=== PATIENT | female | born 1985 | race Caucasian/White ===

== ENCOUNTER 2018-03-21 01:19 | Outpatient (CLI) | payer BC ==
[~2018-03-21 01:19] MED LIST: NO HOME MEDS
== END 2018-03-21 23:59 | disposition home or self-care (01) ==
LOC: DIABETIC 01:19
PROVIDERS: ATTEND Surgery
DX: Z01.818 Encounter for other preprocedural examination (principal); E66.01 Morbid (severe) obesity due to excess calories
CPT/HCPCS: 97802

== ENCOUNTER 2018-04-25 03:37 | Outpatient (CLI) | payer BC | END 2018-04-25 23:59 | disposition home or self-care (01) | LOC: DIABETIC 03:37 | PROVIDERS: ATTEND Surgery | DX: Z01.818 Encounter for other preprocedural examination (principal); E66.01 Morbid (severe) obesity due to excess calories; Z88.1 Allergy status to other antibiotic agents | CPT/HCPCS: 97802 ==

== ENCOUNTER 2018-05-23 03:12 | Outpatient (CLI) | payer BC | END 2018-05-23 23:59 | disposition home or self-care (01) | LOC: DIABETIC 03:12 | PROVIDERS: ATTEND Surgery | DX: Z01.818 Encounter for other preprocedural examination (principal); E66.01 Morbid (severe) obesity due to excess calories | CPT/HCPCS: 97802 ==

== ENCOUNTER 2018-06-06 21:11 | Emergency (ER) | payer BC ==
[~2018-06-06] VITALS: Ht 160 cm; Wt 104.5 kg
[2018-06-06] MEDS ORDERED: ondansetron 4mg rapidly disintigrating tab PO ONE (22:40)
[2018-06-06] MEDS ORDERED: ketorolac trometh inj. 60 MG/2 ML VIAL IM ONE (22:40)
[2018-06-06] MEDS ORDERED: morphine 4 MG/ML inj SYRINge IV ONE (22:40)
--- NOTE | 2018-06-06 23:50 | NUR ---
PT GIVEN MORPHINE AND TORADOL IM. FRIEND AT BEDSIDE
[2018-06-06 23:55] VITALS: BP 134/84
--- NOTE | 2018-06-07 00:29 | NUR ---
dr emerson talking with pt about discharge.
[2018-06-07] MEDS ORDERED: VAL5T PO (00:30)
== END 2018-06-07 00:49 | disposition home or self-care (01) ==
LOC: ER 21:13
DX: M54.5 Low back pain (principal); G89.29 Other chronic pain; Z88.8 Allergy status to other drugs, medicaments and biological substances; Z79.899 Other long term (current) drug therapy; Z60.2 Problems related to living alone
CPT/HCPCS: 96372; 96374; 99283; J1885; J2270

== ENCOUNTER 2020-10-16 08:56 | Emergency (ER) | payer BC, OTHER ==
[~2020-10-16] VITALS: Ht 162.6 cm; Wt 55.5 kg
[2020-10-16 09:05] VITALS: BP 111/75
[2020-10-16] MEDS ORDERED: CEPH-585 PO (09:57)
[2020-10-16 10:33] LABS: URINE HCG NEGATIVE (NEG)
[2020-10-16 10:34] LABS: CLARITY,URINE CLOUDY (Clear); COLOR,URINE YELLOW (Yellow); GLUCOSE, URINE NEGATIVE (Neg); KETONES,URINE NEGATIVE (Neg); LEUKOCYTE ESTERASE ,URINE SMALL (Neg); NITRITES, URINE NEGATIVE (Neg); OCCULT BLOOD,URINE LARGE (Neg); PH,URINE 5.5 (4.8-8.0); PROTEIN,URINE TRACE mg/dl (Neg)
[2020-10-16 10:39] LABS: UA COLLECTION TYPE CLN CATCH MIDSTREAM
[2020-10-16 10:44] LABS: BACTERIA,URINE FEW /HPF (Neg); MUCUS STRANDS MODERATE /LPF (Neg); RBC,URINE 50-100 /HPF (0-2); SQUAMOUS EPITHELIAL CELL,UR MANY /LPF (FEW); URIC ACID CRYSTALS 1+ /HPF (NEGATIVE); WBC,URINE 20-30 /HPF (0-4)
== END 2020-10-16 11:53 | disposition home or self-care (01) ==
LOC: ER 08:57
DX: N39.0 Urinary tract infection, site not specified (principal); G89.29 Other chronic pain; Z88.8 Allergy status to other drugs, medicaments and biological substances; Z79.899 Other long term (current) drug therapy; Z87.440 Personal history of urinary (tract) infections
CPT/HCPCS: 81001; 81025; 99283

== ENCOUNTER 2022-08-19 21:22 | Emergency (ER) | payer BC ==
[~2022-08-19] VITALS: Ht 162.6 cm; Wt 59.1 kg
--- NOTE | 2022-08-19 21:43 | NUR ---
MID TRIAGE PT LEFT. SHE SAID IF THE CRITERIA IS TO NOT TRANSFUSE IF THE HGB ISN'T BELOW 7 THAN SHE IS LEAVING. HER DAUGHTERS' BIRTHDAY IS TOMORROW ANYWAY INFORMED PT THAT A HBG WILL BE ORDERED, DON'T KNOW WHAT HER HGB IS CURRENTLY SHE REFUSED.
== END 2022-08-19 21:45 | disposition left against medical advice (07) ==
LOC: ER 21:22
DX: N93.9 Abnormal uterine and vaginal bleeding, unspecified (principal); Z53.21 Procedure and treatment not carried out due to patient leaving prior to being seen by health care provider
CPT/HCPCS: 99281